=== PATIENT | female | born 1995 | race Hispanic/Latino ===

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

== ENCOUNTER 2017-11-16 17:49 | Emergency (ER) | payer MEDICAID ==
[~2017-11-16] VITALS: Ht 160 cm; Wt 86.4 kg
[~2017-11-16 17:49] MED LIST changes: +CIPROFLOXACN500 MG PO
[2017-11-16 18:30] LABS: HEMATOCRIT 38.9 % (37.0-47.0); HEMOGLOBIN 12.8 g/dl (12.0-16.0); IMMATURE GRANULOCYTES 0.4 % (0.0-5.0); MEAN CELL VOLUME 83.8 fL CALC (80.0-100.0); MEAN CORPUSCULAR HGB 27.6 pG CALC (26.0-32.0); MEAN CORPUSCULAR HGB CONC 32.9 g/L CALC (32.0-36.0); NEUT# 8.95 thou/uL (2.00-7.15); RED BLOOD COUNT 4.64 mill/uL (4.20-5.60); RED CELL DISTRI WIDTH 14.4 % (11.5-15.5)
[2017-11-16 18:32] LABS: URINE BILIRUBIN - DIPSTICK NEGATIVE (NEGATIVE); URINE BLOOD DIPSTICK MODERATE (NEGATIVE); URINE COLOR YELLOW; URINE GLUCOSE - DIPSTICK NEGATIVE (NEGATIVE); URINE KETONE NEGATIVE (NEGATIVE); URINE PROTEIN - DIPSTICK 30 mg/dL (NEG-TRACE); URINE SPECIFIC GRAVITY 1.025
[2017-11-16 18:33] LABS: URINE CLARITY CLOUDY; URINE LEUK ESTERASE MODERATE (NEGATIVE); URINE NITRITE - DIPSTICK POSITIVE (Negative)
[2017-11-16 18:39] LABS: URINE BACTERIA FEW hpf; URINE SQUAMOUS EPITHELIAL CELL FEW EPI/hpf (0-FEW); URINE WBC 20-50 WBC/hpf (0-5)
[2017-11-16 18:42] LABS: ALBUMIN 4.2 g/dL (3.2-5.0); ALKALINE PHOSPHATASE 105 u/l (38-126); AMYLASE 41 u/l (30-110); ANION GAP 18 (6-22 (CALC)); BILIRUBIN, TOTAL 0.6 mg/dL (0.0-1.4); BUN 7 mg/dL (7-17); BUN/CREATININE RATIO 13 (12-20 (CALC)); CARBON DIOXIDE 24 mmol/l (22-30); CHLORIDE 103 mmol/l (95-108); CREATININE 0.5 mg/dL (0.5-1.0); GFR > 60 ML/MIN (>=60 (CALC)); GFR FOR AFR.AMER. > 60 ML/MIN (>=60 (CALC)); LIPASE 22 u/l (23-300); POTASSIUM 3.6 mmol/l (3.5-5.1); SGOT/AST 19 u/l (14-36); SGPT/ALT 29 u/l (9-52); SODIUM 142 mmol/l (137-146)
[2017-11-16] MEDS ORDERED: BACTRIM DS1 TAB PO (19:53)
[2017-11-16 20:05] VITALS: BP 104/67
== END 2017-11-16 20:07 | disposition home or self-care (01) ==
LOC: ED 17:49
DX: N39.0 Urinary tract infection, site not specified (principal); B96.20 Unspecified Escherichia coli [E. coli] as the cause of diseases classified elsewhere; R10.11 Right upper quadrant pain
CPT/HCPCS: Q9967

== ENCOUNTER 2018-01-21 19:48 | Emergency (ER) | payer MEDICAID ==
[~2018-01-21] VITALS: Ht 160 cm; Wt 86.0 kg
[~2018-01-21 19:48] MED LIST changes: +BACTRIM DS1 TAB PO
[2018-01-21 21:08] LABS: INFLUENZA A NONE DETECTED (NONE DETECT); INFLUENZA B NONE DETECTED (NONE DETECT)
[2018-01-21] MEDS ORDERED: AMOXICILLIN500 MG PO (21:18)
[2018-01-21 21:25] VITALS: BP 127/74
== END 2018-01-21 21:25 | disposition home or self-care (01) ==
LOC: ED 19:48
PROVIDERS: Emergency Medicine
DX: H66.93 Otitis media, unspecified, bilateral (principal); H92.03 Otalgia, bilateral; J06.9 Acute upper respiratory infection, unspecified; R05 Cough; R09.81 Nasal congestion

== ENCOUNTER 2018-05-22 21:58 | Emergency (ER) | payer SELFPAY ==
[~2018-05-22] VITALS: Ht 160 cm; Wt 94.5 kg
[2018-05-22 22:59] LABS: URINE BILIRUBIN - DIPSTICK NEGATIVE (NEGATIVE); URINE BLOOD DIPSTICK MODERATE (NEGATIVE); URINE COLOR YELLOW; URINE GLUCOSE - DIPSTICK NEGATIVE (NEGATIVE); URINE KETONE NEGATIVE (NEGATIVE); URINE LEUK ESTERASE TRACE (NEGATIVE); URINE NITRITE - DIPSTICK NEGATIVE (Negative); URINE PH 5.5 (4.5-8.0); URINE PROTEIN - DIPSTICK NEGATIVE (NEG-TRACE); URINE SPECIFIC GRAVITY >=1.030; URINE UROBILINOGEN - DIPSTICK 0.2 E.U./dL (0.2)
[2018-05-22 23:00] LABS: HEMOGLOBIN 14.4 g/dl (12.0-16.0); IMMATURE GRANULOCYTES 0.5 % (0.0-5.0); MEAN CELL VOLUME 85.6 fL CALC (80.0-100.0); MEAN CORPUSCULAR HGB 27.3 pG CALC (26.0-32.0); MEAN CORPUSCULAR HGB CONC 31.9 g/L CALC (32.0-36.0); NEUT# 15.54 thou/uL (2.00-7.15); RED BLOOD COUNT 5.28 mill/uL (4.20-5.60); RED CELL DISTRI WIDTH 14.5 % (11.5-15.5)
[2018-05-22 23:01] LABS: HEMATOCRIT 45.2 % (37.0-47.0)
[2018-05-22 23:09] LABS: URINE BACTERIA MODERATE hpf; URINE RBC 25-50 RBC/hpf (0-5); URINE SQUAMOUS EPITHELIAL CELL FEW EPI/hpf (0-FEW)
[2018-05-22 23:13] LABS: ALBUMIN 4.8 g/dL (3.2-5.0); ALKALINE PHOSPHATASE 149 u/l (38-126); AMYLASE 53 u/l (30-110); ANION GAP 16 (6-22 (CALC)); BILIRUBIN, TOTAL 0.5 mg/dL (0.0-1.4); BUN 12 mg/dL (7-17); BUN/CREATININE RATIO 22 (12-20 (CALC)); CARBON DIOXIDE 25 mmol/l (22-30); CHLORIDE 105 mmol/l (95-108); CREATININE 0.5 mg/dL (0.5-1.0); GFR > 60 ML/MIN (>=60 (CALC)); GFR FOR AFR.AMER. > 60 ML/MIN (>=60 (CALC)); LIPASE 41 u/l (23-300); POTASSIUM 3.9 mmol/l (3.5-5.1); SGOT/AST 27 u/l (14-36); SODIUM 142 mmol/l (137-146); TOTAL PROTEIN 9.2 g/dL (6.3-8.2)
[2018-05-22] MEDS ORDERED: BACTRIM DS1 TAB PO (23:39)
[2018-05-22] MEDS ORDERED: PHENERGAN25 MG/TAB PO (23:39)
[2018-05-22] MEDS ORDERED: LOMOTIL2.5 MG PO (23:39)
[2018-05-22 23:55] VITALS: BP 124/74
== END 2018-05-22 23:55 | disposition home or self-care (01) | DRG 392 ==
LOC: ED 21:58
PROVIDERS: Family Medicine
DX: K52.9 Noninfective gastroenteritis and colitis, unspecified (principal); N39.0 Urinary tract infection, site not specified; R10.33 Periumbilical pain; R11.2 Nausea with vomiting, unspecified; R19.7 Diarrhea, unspecified; R50.9 Fever, unspecified

== ENCOUNTER 2020-01-27 10:22 | Emergency (ER) | payer BC ==
[~2020-01-27] VITALS: Ht 160 cm; Wt 100.0 kg
[~2020-01-27 10:22] MED LIST changes: +LOMOTIL2.5 MG PO; +PHENERGAN25 MG/TAB PO
[2020-01-27] MEDS ORDERED: PRENATA3 PO (10:37)
[2020-01-27] MEDS ORDERED: AMOXICILLIN500 M2 PO (11:39)
[2020-01-27 11:46] VITALS: BP 100/60
== END 2020-01-27 11:47 | disposition home or self-care (01) | DRG 833 ==
LOC: ED 10:22
DX: O99.512 Diseases of the respiratory system complicating pregnancy, second trimester (principal); J06.9 Acute upper respiratory infection, unspecified; Z3A.26 26 weeks gestation of pregnancy; Z20.828 Contact with and (suspected) exposure to other viral communicable diseases

== ENCOUNTER 2020-05-26 | Emergency (ER) | payer BC ==
[~2020-05-26] MED LIST changes: +AMOXICILLIN500 M2 PO; +PRENATA3 PO
== END 2020-05-26 22:46 | disposition home or self-care (01) | DRG 179 ==
DX: U07.1 COVID-19 (principal); R52 Pain, unspecified

== ENCOUNTER 2020-05-29 | Emergency (ER) | payer BC ==
[2020-05-29 23:39] LABS: IMMATURE GRANULOCYTES 0.3 % (0.0-5.0); MEAN CORPUSCULAR HGB 24.2 pG CALC (26.0-32.0); MEAN CORPUSCULAR HGB CONC 30.5 g/dL CAL (32.0-36.0); NEUT# 2.8 thou/uL (2.00-7.15); RED BLOOD COUNT 4.84 mill/uL (4.20-5.60); RED CELL DISTRI WIDTH 15.6 % (11.5-15.5)
[2020-05-29 23:45] LABS: HEMATOCRIT 38.3 % (37.0-47.0); HEMOGLOBIN 11.7 g/dl (12.0-16.0); MEAN CELL VOLUME 79.1 fL CALC (80.0-100.0)
[2020-05-29 23:55] LABS: ALKALINE PHOSPHATASE 103 u/l (38-126); ANION GAP 12 (6-22 (CALC)); BILIRUBIN, TOTAL 0.5 mg/dL (0.0-1.4); BUN 5 mg/dL (7-17); BUN/CREATININE RATIO 10 (12-20 (CALC)); CARBON DIOXIDE 27 mmol/l (22-30); CHLORIDE 102 mmol/l (95-108); CREATININE 0.6 mg/dL (0.5-1.0); GFR > 60 ML/MIN (>=60 (CALC)); GFR FOR AFR.AMER. > 60 ML/MIN (>=60 (CALC)); POTASSIUM 3.7 mmol/l (3.5-5.1); SGOT/AST 38 u/l (14-36); SODIUM 137 mmol/l (137-146); TOTAL PROTEIN 8.1 g/dL (6.3-8.2)
[2020-05-29 23:57] LABS: ACT PARTIAL THROMBO TIME 31.8 SECONDS (20.0-32.5); PROTHROMBIN TIME 10.5 SECONDS (9.0-12.5)
[2020-05-30 00:01] LABS: D-DIMER 0.84 mg/L (0.19-0.60)
[2020-05-30] MEDS ORDERED: ZPAK PO (01:43)
[2020-05-30] MEDS ORDERED: VENTOLIN HFA IN (01:43)
[2020-05-30] MEDS ORDERED: DECADRON2 MG PO (01:43)
--- NOTE | 2020-05-30 07:32 | NUR ---
RECEIVED CONSULT FOR BAMLANIVIMAB/ETESEVIMAB. HOWEVER, PT IS NOT A CANDIDATE BASED ON AGE AND LACK OF HIGH RISK RISK FACTORS.
== END 2020-05-30 02:50 | disposition home or self-care (01) | DRG 177 ==
DX: U07.1 COVID-19 (principal); J12.82 Pneumonia due to coronavirus disease 2019
CPT/HCPCS: Q9967

== ENCOUNTER 2024-02-16 23:56 | Emergency (ER) | payer SELFPAY ==
[~2024-02-16] VITALS: Ht 162.6 cm; Wt 94.0 kg
[~2024-02-16 23:56] MED LIST changes: +DECADRON2 MG PO; +MEDDOSEPAK PO; +VENTOLIN HFA IN; +ZPAK PO; +ZYRTEC10 M5 PO
[2024-02-17 00:18] VITALS: BP 107/64
[2024-02-17] MEDS ORDERED: ACETAMINOPHEN 500 MG TAB PO ONE (00:25)
[2024-02-17 00:30] VITALS: BP 108/59
[2024-02-17 01:00] VITALS: BP 115/72
[2024-02-17 01:04] LABS: BASO% 0.3 % (0-3); EOS% 0.8 % (0-8); HEMATOCRIT 36.6 % (37.0-47.0); HEMOGLOBIN 11.8 g/dl (12.0-16.0); IMMATURE GRANULOCYTES 0.1 % (0.0-5.0); LYMPH% 11.8 % (15-41); MEAN CELL VOLUME 83.2 fL CALC (80.0-100.0); MEAN CORPUSCULAR HGB 26.8 pG CALC (26.0-32.0); MEAN CORPUSCULAR HGB CONC 32.2 g/dL CAL (32.0-36.0); MONO% 6.2 % (2-13); NEUT# 6.35 thou/uL (2.00-7.15); NEUT% 80.8 % (42-76); RED BLOOD COUNT 4.4 mill/uL (4.20-5.60); RED CELL DISTRI WIDTH 14.6 % (11.5-15.5)
[2024-02-17] MEDS ORDERED: TAM75CAP PO (01:24)
[2024-02-17] MEDS ORDERED: OSELTAMIVIR PHOSPHATE 75 MG/TAB CAP PO ONE (01:25)
[2024-02-17 01:30] VITALS: BP 95/56
[2024-02-17 01:57] VITALS: BP 95/56
== END 2024-02-17 01:57 | disposition home or self-care (01) | DRG 195 ==
LOC: ED 23:56
PROVIDERS: Family Medicine
DX: J10.1 Influenza due to other identified influenza virus with other respiratory manifestations (principal); F41.9 Anxiety disorder, unspecified; F32.A Depression, unspecified; Z86.16 Personal history of COVID-19; Z20.822 Contact with and (suspected) exposure to COVID-19